=== PATIENT | male | born 1950 | race Caucasian/White ===

== ENCOUNTER 2016-04-29 15:52 | Observation (INO) ==
[2016-04-29] MEDS ORDERED: Nitroglycerin 0.4 MG TAB.SUBL SL ONE (15:55)
--- NOTE | 2016-04-29 15:58 | Emergency Department Note ---
Disposition Clinical Impression: Chest pain, Weakness Disposition: Admitted As Inpatient Condition: Good General Adult HPI - General Chief complaint: ED Chest Pain Stated complaint: Chest Pain Time Seen by Provider: 04/29/16 15:56 Nursing Notes Reviewed: Yes Vital Signs Reviewed: Yes - Related Data Home Medications Medication Instructions Recorded Confirmed Aspirin 81 mg PO DAILY 04/29/16 04/29/16 Brimonidine 0.2% [Alphagan] 1 drop RIGHT EYE TID 04/29/16 04/29/16 Clopidogrel [Plavix] 75 mg PO DAILY 04/29/16 04/29/16 Dorzolamide [Trusopt] 1 drop RIGHT EYE TID 04/29/16 04/29/16 LORazepam [Lorazepam] 2 mg PO TID PRN 04/29/16 04/29/16 Lansoprazole [Prevacid] 30 mg PO QAM 04/29/16 04/29/16 Latanoprost [Xalatan] 1 drop RIGHT EYE HS 04/29/16 04/29/16 Levothyroxine [Synthroid] 75 mcg PO QAM 04/29/16 04/29/16 Lovastatin 40 mg PO HS 04/29/16 04/29/16 Metoprolol [Lopressor] 12.5 mg PO BID 04/29/16 04/29/16 Nefazodone HCl 50 mg PO HS 04/29/16 04/29/16 Oxybutynin Chloride [Ditropan Xl] 10 mg PO DAILY 04/29/16 04/29/16 Allergies Allergy/AdvReac Type Severity Reaction Status Date / Time acetaminophen Allergy See Verified 04/29/16 15:55 [From Darvocet-N] Comments peanut Allergy See Verified 04/29/16 15:55 Comments Penicillins Allergy See Verified 04/29/16 15:55 Comments propoxyphene Allergy See Verified 04/29/16 15:55 [From Darvocet-N] Comments Sulfa (Sulfonamide Allergy See Verified 04/29/16 15:55 Antibiotics) Comments Course Vital Signs Temperature 98.0 F 04/29/16 15:56 Pulse Rate 83 04/29/16 15:56 Respiratory Rate 18 04/29/16 15:56 Blood Pressure 84/66 04/29/16 15:56 O2 Sat by Pulse Oximetry 98 04/29/16 15:56 Temperature 97.7 F 04/29/16 21:47 Pulse Rate 55 04/29/16 21:47 Respiratory Rate 18 04/29/16 21:47 Blood Pressure 123/60 04/29/16 21:47 O2 Sat by Pulse Oximetry 98 04/29/16 21:47 Oxygen Delivery Oxygen Delivery Nasal Cannula Medical Decision Making - MDM Narrative Medical decision making narrative: I examined this patient and my medical decision-making was reviewed with the ATHLETIC TURF WORKER/PA/Advanced Practice Nurse/Resident Physician. I agree with the documented findings, disposition and treatment plan as described except to the extent set forth below. Patient presents with EMS, saw this patient with Dr. Burden and myself. I agree with his evaluation and management plan, supervised the care of the patient's stay. Patient was at the applications support analyst today developed chest pain. He took aspirin. Medics evaluated him get an EKG which showed multiple PVCs. No ST segment elevation here today. I will do a workup on him given some nitroglycerin to make the chest pain go away then reassess. He most likely will need admission. Waiting on family to come also to get more history from them. Chest X-Ray 04/29/16 15:55 IMPRESSION: No acute cardiopulmonary process. D/ / 04/29/2016 16:34:51 Arsen Beltran MD / Opal Casillas Interpreting Provider: Arsen Beltran MD Chest X-Ray 04/29/16 15:55 IMPRESSION: No acute cardiopulmonary process. D/ / 04/29/2016 16:34:51 Arsen Beltran MD / Opal Casillas Interpreting Provider: Arsen Beltran MD Abdomen/Pelvis CT 04/29/16 17:52 IMPRESSION: 1. No acute abnormality in the abdomen or pelvis. 2. Mild tree-in-bud opacities in the right lung base compatible with an infectious or inflammatory process. 3. Tiny bilateral nonobstructing intrarenal calculi. D/ / Danny Villela MD / Danny Villela MD Interpreting Provider: Danny Villela MD - Lab Data Result diagrams: 04/29/16 16:18 04/29/16 16:18 Lab Results 04/29/16 04/29/16 04/29/16 Range/Units 16:18 16:18 16:18 WBC 8.8 (4.3-11.1) K/mcL RBC 4.73 (4.19-5.50) M/mcL Hgb 15.8 (12.9-16.9) g/dL Hct 44.7 (37.5-50.1) % MCV 94.5 (83.0-100.0) fL MCH 33.4 H (28.0-33.3) pg MCHC 35.3 (31.6-35.5) g/dL RDW 12.4 (11.5-14.5) % Plt Count 175 (140-400) K/mcL MPV 12.3 (9.4-12.4) fL Immature Gran % 0.2 (0-4) % Seg Neutrophils % 64.2 % Lymphocytes % 28.3 % Monocytes % 5.9 % Eosinophils % 0.9 % Basophils % 0.5 % Neutrophils # 5.6 (1.6-8.9) K/mcL Lymphocytes # 2.5 (0.6-4.6) K/mcL Monocytes # 0.5 (0.0-1.3) K/mcL Eosinophils # 0.1 (0.0-0.6) K/mcL Basophils # 0.0 (0.0-0.2) K/mcL ESR (0-10) mm/hr PT 12.4 H (9.4-12.1) Seconds INR 1.1 APTT 30.3 (26.0-36.0) Seconds Sodium 139 (136-145) mEq/L Potassium 3.6 (3.5-4.5) mEq/L Chloride 100 (98-109) mEq/L Carbon Dioxide 29 (19-29) mEq/L BUN 11 (8-26) mg/dL Creatinine 1.00 (0.72-1.25) mg/dL Est GFR ( Amer) > 60 (> 60) Est GFR (Non-Af Amer) > 60 (> 60) BUN/Creatinine Ratio 11 (6-26) Glucose 91 (70-99) mg/dL Calculated Osmolality 287 (280-300) Calcium 10.0 (8.6-10.8) mg/dL Troponin I (0-0.03) ng/mL TSH (0.350-4.840) mcIU/mL Urine Color (Yellow) Urine Clarity (Clear) Urine pH (5.0-8.0) pH Units Ur Specific [place] (1.010-1.025) Urine Protein (Neg-Trace) mg/dL Urine Glucose (UA) (Normal) mg/dL Urine Ketones (Negative) mg/dL Urine Blood (Negative) Urine Nitrite (Negative) Urine Bilirubin (Negative) Urine Urobilinogen (Normal) mg/dL Ur Leukocyte Esterase (Negative) Urine Microscopic RBC (0-3) per hpf Urine Microscopic WBC (0-3) per hpf Ur Squamous Epith Cells (None-Few) per lpf Urine Bacteria (None-Few) per hpf Hyaline Casts (None-Few) per lpf Ur Culture Indicated? (NO) 04/29/16 04/29/16 04/29/16 Range/Units 16:18 16:18 16:18 WBC (4.3-11.1) K/mcL RBC (4.19-5.50) M/mcL Hgb (12.9-16.9) g/dL Hct (37.5-50.1) % MCV (83.0-100.0) fL MCH (28.0-33.3) pg MCHC (31.6-35.5) g/dL RDW (11.5-14.5) % Plt Count (140-400) K/mcL MPV (9.4-12.4) fL Immature Gran % (0-4) % Seg Neutrophils % % Lymphocytes % % Monocytes % % Eosinophils % % Basophils % % Neutrophils # (1.6-8.9) K/mcL Lymphocytes # (0.6-4.6) K/mcL Monocytes # (0.0-1.3) K/mcL Eosinophils # (0.0-0.6) K/mcL Basophils # (0.0-0.2) K/mcL ESR 26 H (0-10) mm/hr PT (9.4-12.1) Seconds INR APTT (26.0-36.0) Seconds Sodium (136-145) mEq/L Potassium (3.5-4.5) mEq/L Chloride (98-109) mEq/L Carbon Dioxide (19-29) mEq/L BUN (8-26) mg/dL Creatinine (0.72-1.25) mg/dL Est GFR ( Amer) (> 60) Est GFR (Non-Af Amer) (> 60) BUN/Creatinine Ratio (6-26) Glucose (70-99) mg/dL Calculated Osmolality (280-300) Calcium (8.6-10.8) mg/dL Troponin I 0.00 (0-0.03) ng/mL TSH 1.600 (0.350-4.840) mcIU/mL Urine Color (Yellow) Urine Clarity (Clear) Urine pH (5.0-8.0) pH Units Ur Specific [place] (1.010-1.025) Urine Protein (Neg-Trace) mg/dL Urine Glucose (UA) (Normal) mg/dL Urine Ketones (Negative) mg/dL Urine Blood (Negative) Urine Nitrite (Negative) Urine Bilirubin (Negative) Urine Urobilinogen (Normal) mg/dL Ur Leukocyte Esterase (Negative) Urine Microscopic RBC (0-3) per hpf Urine Microscopic WBC (0-3) per hpf Ur Squamous Epith Cells (None-Few) per lpf Urine Bacteria (None-Few) per hpf Hyaline Casts (None-Few) per lpf Ur Culture Indicated? (NO) 04/29/16 Range/Units 17:50 WBC (4.3-11.1) K/mcL RBC (4.19-5.50) M/mcL Hgb (12.9-16.9) g/dL Hct (37.5-50.1) % MCV (83.0-100.0) fL MCH (28.0-33.3) pg MCHC (31.6-35.5) g/dL RDW (11.5-14.5) % Plt Count (140-400) K/mcL MPV (9.4-12.4) fL Immature Gran % (0-4) % Seg Neutrophils % % Lymphocytes % % Monocytes % % Eosinophils % % Basophils % % Neutrophils # (1.6-8.9) K/mcL Lymphocytes # (0.6-4.6) K/mcL Monocytes # (0.0-1.3) K/mcL Eosinophils # (0.0-0.6) K/mcL Basophils # (0.0-0.2) K/mcL ESR (0-10) mm/hr PT (9.4-12.1) Seconds INR APTT (26.0-36.0) Seconds Sodium (136-145) mEq/L Potassium (3.5-4.5) mEq/L Chloride (98-109) mEq/L Carbon Dioxide (19-29) mEq/L BUN (8-26) mg/dL Creatinine (0.72-1.25) mg/dL Est GFR ( Amer) (> 60) Est GFR (Non-Af Amer) (> 60) BUN/Creatinine Ratio (6-26) Glucose (70-99) mg/dL Calculated Osmolality (280-300) Calcium (8.6-10.8) mg/dL Troponin I (0-0.03) ng/mL TSH (0.350-4.840) mcIU/mL Urine Color Yellow (Yellow) Urine Clarity Clear (Clear) Urine pH 6.0 (5.0-8.0) pH Units Ur Specific [place] 1.010 (1.010-1.025) Urine Protein Negative (Neg-Trace) mg/dL Urine Glucose (UA) Normal (Normal) mg/dL Urine Ketones Negative (Negative) mg/dL Urine Blood Trace H (Negative) Urine Nitrite Negative (Negative) Urine Bilirubin Negative (Negative) Urine Urobilinogen Normal (Normal) mg/dL Ur Leukocyte Esterase Negative (Negative) Urine Microscopic RBC 0-3 (0-3) per hpf Urine Microscopic WBC 0-3 (0-3) per hpf Ur Squamous Epith Cells None Seen (None-Few) per lpf Urine Bacteria None Seen (None-Few) per hpf Hyaline Casts None Seen (None-Few) per lpf Ur Culture Indicated? NO (NO)
--- NOTE | 2016-04-29 16:04 | Emergency Department Note ---
Disposition Clinical Impression: Weakness Chest pain Qualifiers: Chest pain type: unspecified Qualified Code(s): R07.9 - Chest pain, unspecified Disposition: Admitted As Inpatient Forms: ED Satisfaction Letter Chest Pain HPI - General Chief Complaint: ED Chest Pain Stated Complaint: Chest Pain Source: patient, family, EMS Mode of arrival: ambulatory Limitations: no limitations Vital Signs Reviewed: Yes Nursing Notes Reviewed: Yes - History of Present Illness HPI Narrative: Patient here for evaluation of chest pain. Patient with significant past medical history including CABG and multiple stents. Most recent stent placed in December. Patient has been experiencing intermittent chest pain over the last week that has been better with rest. Patient was at an outpatient ophthalmology appointment when he began having chest pain and dyspnea. Patient describes 9 out of 10 chest pressure and generalized weakness. Patient has a pacemaker/defibrillator was placed in December. Patient sees neurology here for new onset right-sided tremors occurring approximately 5-6 weeks ago. - Related Data Home Medications Medication Instructions Recorded Confirmed Aspirin 81 mg PO DAILY 04/29/16 04/29/16 Brimonidine 0.2% [Alphagan] 1 drop RIGHT EYE TID 04/29/16 04/29/16 Clopidogrel [Plavix] 75 mg PO DAILY 04/29/16 04/29/16 Dorzolamide [Trusopt] 1 drop RIGHT EYE TID 04/29/16 04/29/16 LORazepam [Lorazepam] 2 mg PO TID PRN 04/29/16 04/29/16 Lansoprazole [Prevacid] 30 mg PO QAM 04/29/16 04/29/16 Latanoprost [Xalatan] 1 drop RIGHT EYE HS 04/29/16 04/29/16 Levothyroxine [Synthroid] 75 mcg PO QAM 04/29/16 04/29/16 Lovastatin 40 mg PO HS 04/29/16 04/29/16 Metoprolol [Lopressor] 12.5 mg PO BID 04/29/16 04/29/16 Nefazodone HCl 100 mg PO HS 04/29/16 04/29/16 Oxybutynin Chloride [Ditropan Xl] 10 mg PO DAILY 04/29/16 04/29/16 Allergies Allergy/AdvReac Type Severity Reaction Status Date / Time acetaminophen Allergy See Verified 04/29/16 15:55 [From Darvocet-N] Comments peanut Allergy See Verified 04/29/16 15:55 Comments Penicillins Allergy See Verified 04/29/16 15:55 Comments propoxyphene Allergy See Verified 04/29/16 15:55 [From Dargust-N] Comments Sulfa (Sulfonamide Allergy See Verified 04/29/16 15:55 Antibiotics) Comments Constitutional: Reports: weakness Cardiovascular: Reports: chest pain, dyspnea on exertion Respiratory: Reports: dyspnea Gastrointestinal: Reports: abdominal pain, nausea Genitourinary: Denies: urgency, dysuria Musculoskeletal: Denies: back pain Integumentary: Denies: rash Endocrine: Reports: fatigue Physical Exam Patient with right upper extremity tremor - General Limitations: no limitations - Head Head exam: atraumatic, normocephalic - Eye Eye exam: Present: normal appearance, PERRL - ENT ENT exam: normal exam, normal oropharynx - Neck Neck exam: Present: normal inspection - Chest Chest inspection: Present: normal inspection, symmetric chest wall rise. Absent : tenderness - Respiratory Respiratory exam: Present: normal lung sounds bilaterally. Absent: wheezes - Cardiovascular Cardiovascular exam: Present: regular rate, normal rhythm - Abdominal Exam Abdominal exam: Present: soft, tenderness Abdominal tenderness: Present: LLQ - Extremities Exam Extremities exam: Present: normal inspection. Absent: tenderness, pedal edema - Back Exam Back exam: Present: normal inspection - Neurological Exam Neurological exam: Present: CN II-XII intact, other (Patient is awake and alert but gives slightly different variations of story upon repeated questioning.). Absent: motor sensory deficit - Skin Skin exam: Present: warm, dry Course - Reevaluation(s) Reevaluation #1: Patient given 2 sublingual nitroglycerin and does not currently complain of any chest pressure. Patient has headache from the nitroglycerin. Patient appears much more comfortable at this point. Continued complaint of significant weakness that is generalized. Patient will be brought in for further evaluation by the hospital team. Chest Pain - Medical Records Medical records reviewed: Yes I reviewed the patient's medical records. - Lab Data Lab results reviewed: Yes I reviewed the patient's lab results. - Radiology Data Radiology results reviewed: Yes I reviewed the patient's radiology results. - EKG Data EKG attestation: Yes I reviewed and interpreted this EKG. EKG results narrative: Sinus Rhythm with PVC rate 79; 1mm elevation in V2 and V3. No other depressions or twave changes. No previous EKG.
[2016-04-29 16:44] LABS: Basophils % 0.5 %; Eosinophils # 0.1 K/mcL (0.0-0.6); Eosinophils % 0.9 %; Hematocrit 44.7 % (37.5-50.1); Hemoglobin 15.8 g/dL (12.9-16.9); Immature Granulocytes % 0.2 % (0-4); Lymphocytes # 2.5 K/mcL (0.6-4.6); Lymphocytes % 28.3 %; Mean Corpuscular HGB Conc 35.3 g/dL (31.6-35.5); Mean Corpuscular Hemoglobin 33.4 pg (28.0-33.3); Mean Corpuscular Volume 94.5 fL (83.0-100.0); Mean Platelet Volume 12.3 fL (9.4-12.4); Monocytes # 0.5 K/mcL (0.0-1.3); Monocytes % 5.9 %; Neutrophils # 5.6 K/mcL (1.6-8.9); Platelet Count 175 K/mcL (140-400); Red Blood Count 4.73 M/mcL (4.19-5.50); Red Cell Distribution Width 12.4 % (11.5-14.5); Segmented Neutrophils % 64.2 %
[2016-04-29 16:45] LABS: INR 1.1; Prothrombin Time 12.4 Seconds (9.4-12.1)
[2016-04-29 16:48] LABS: Activated Partial Thrombo Time 30.3 Seconds (26.0-36.0)
[2016-04-29 16:54] LABS: BUN/Creatinine Ratio 11 (6-26); Blood Urea Nitrogen 11 mg/dL (8-26); Carbon Dioxide 29 mEq/L (19-29); Chloride 100 mEq/L (98-109); Glucose 91 mg/dL (70-99); Osmolality,Calculated 287 (280-300); Potassium 3.6 mEq/L (3.5-4.5); Sodium 139 mEq/L (136-145); eGFR For African Americans > 60 (> 60); eGFR For Non-African Americans > 60 (> 60)
[2016-04-29 18:28] LABS: Bilirubin,Urine Negative (Negative); Blood,Urine Trace (Negative); Clarity,Urine Clear (Clear); Color,Urine Yellow (Yellow); Glucose,Urine (UA) Normal (Normal); Ketones,Urine Negative (Negative); Leukocyte Esterase,Urine Negative (Negative); Nitrite,Urine Negative (Negative); Protein,Urine Negative (Neg-Trace); Urobilinogen,Urine Normal (Normal)
[2016-04-29 18:31] LABS: Bacteria,Urine None Seen per hpf (None-Few); Hyaline Casts,Urine None Seen per lpf (None-Few); RBC,Urine 0-3 per hpf (0-3); Squamous Epithelial Cell,Urine None Seen per lpf (None-Few); WBC,Urine 0-3 per hpf (0-3)
[2016-04-29] MEDS ORDERED: Naloxone 0.4 MG/ML INJ IVP PRN (22:33)
[2016-04-29] MEDS ORDERED: Ondansetron 4 MG/2 ML VIAL IVP PRN (22:33)
[2016-04-29] MEDS ORDERED: Nitroglycerin 0.4 MG TAB.SUBL SL PRN (22:38)
--- NOTE | 2016-04-29 23:12 | Internal Med History&Physical ---
<Louisa Chamberlain - Last Filed: 04/29/16 23:37> Date of Encounter: 04/29/16 Time of Encounter: 23:00 Assessment and Plan (1) Chest pain Current visit: Yes Status: Acute 1 patient has been experiencing intermittent chest pain relieved with rest as well as weakness past week. He did have chest pain today which was relieved with nitroglycerin. She has extensive cardiac history with recent stent placed in December as well as hypertension and current smoker. First cardiac enzyme was negative we will continue to cycle cardiac troponins 2 . Cardiac monitoring 3 the patient nothing by mouth after midnight- we will consult cardiology, patient requesting to be seen by his test facility engineer Dr. Powell, [facility], he will be notified in the a.m. patient's admission and appreciate his recommendations 4 nitroglycerin and morphine as needed oxygen as needed and maintain SPO2 greater than 92% 5 continue with aspirin and Plavix statin and beta sha Qualifiers: Chest pain type: unspecified Qualified Code(s): R07.9 - Chest pain, unspecified (2) HTN (hypertension) Current visit: Yes Status: Acute 1 we will continue with metoprolol lisinopril maintain systolic less than 140 Qualifiers: Hypertension type: essential hypertension Qualified Code(s): I10 - Essential (primary) hypertension (3) COPD (chronic obstructive pulmonary disease) Current visit: Yes Status: Acute 1 we will continue with oxygen to maintain SPO2 greater 92% 2 bronchodilators Qualifiers: COPD type: emphysema Emphysema type: unspecified Qualified Code(s): J43.9 - Emphysema, unspecified (4) Tobacco abuse Current visit: Yes Status: Acute 1 patient continues to smoke 2 packs a day encouraged patient to stop smoking offer nicotine patch which he declined at this time (5) DVT prophylaxis Current visit: Yes Status: Acute 1 DEO arriola (6) Essential tremor Current visit: Yes Status: Acute 1 she has been experiencing tremors approximately 5-6 weeks and seen by neurology and will follow up with Dr. Viveros Internal Medicine - H&P: HPI Chief complaint: CP Admitted From: Emergency Dept Plans for Post Hospital Care: Home History of present illness: Mr. Polk is a 65 year old male COPD oxygen dependent [place] with CABG and multiple stents most recent stent placed in December 2015 pacemaker / AICD CHF GERD tobacco abuse. She has been experiencing intermittent chest pressure that is relieved with rest off and on approximately 1 week as well as increasing weakness for past 3 days. Today he had an appointment with his vice president sales while he was in the physician's office, the patient became very weak and experiencing sternal nonradiating chest pressure which she describes as tightness because of someone was sitting on his chest he was short of breath denies any nausea diaphoresis and was lightheaded. He was transported to the ER per EMS for further workup and evaluation. Upon arrival to the ER the patient was given 2 nitroglycerin which did relieve his chest pressure. First set of cardiac troponins were negative chest x-ray with no acute process. Rest of lab work was unremarkable. He did experience some abdominal pain while in the ER CT of abdomen was obtained which was negative. He was admitted for further workup and evaluation. At present time patient denies any chest pain or shortness of breath. His test facility engineer is Dr. Powell at [facility] who performed his last stent in December. He has been experiencing a tremor for approximately 5-6 weeks and has been examined by neurology Dr. Viveros. At present time he is hemodynamically stable. I reviewed this case with Dr. Gunderson who agrees with plan Past Med Surg Social Fam HX - Past Medical History Medical history: CHF, coronary artery disease, GERD, hyperlipidemia, hypertension, myocardial infarction, thyroid disease Psychiatric history: anxiety - Past Surgical History Surgical History: angioplasty/stent, coronary bypass (CABG), herniorrhaphy, pacemaker/AICD - Social History Smoking Status: Current every day smoker Packs per day: 2 Smokeless Tobacco Status: No Alcohol use: none Drug use: none - Family History Sister Hx Family Cardiac Disorders: Yes (MYOCARDIAL INFARCTION.) Internal Medicine - H&P: Meds Aspirin 81 mg PO DAILY 04/29/16 [History] Brimonidine 0.2% [Alphagan] 1 drop RIGHT EYE TID 04/29/16 [History] Clopidogrel [Plavix] 75 mg PO DAILY 04/29/16 [History] Dorzolamide [Trusopt] 1 drop RIGHT EYE TID 04/29/16 [History] LORazepam [Lorazepam] 2 mg PO TID PRN 04/29/16 [History] Lansoprazole [Prevacid] 30 mg PO QAM 04/29/16 [History] Latanoprost [Xalatan] 1 drop RIGHT EYE HS 04/29/16 [History] Levothyroxine [Synthroid] 75 mcg PO QAM 04/29/16 [History] Lovastatin 40 mg PO HS 04/29/16 [History] Metoprolol [Lopressor] 12.5 mg PO BID 04/29/16 [History] Nefazodone HCl 50 mg PO HS 04/29/16 [History] Oxybutynin Chloride [Ditropan Xl] 10 mg PO DAILY 04/29/16 [History] Allergies acetaminophen [From Darvocet-N] Allergy (Verified 04/29/16 15:55) See Comments peanut Allergy (Verified 04/29/16 15:55) See Comments Penicillins Allergy (Verified 04/29/16 15:55) See Comments propoxyphene [From Darvocet-N] Allergy (Verified 04/29/16 15:55) See Comments Sulfa (Sulfonamide Antibiotics) Allergy (Verified 04/29/16 15:55) See Comments All Systems PM: A 10-system review of systems was performed and is negative for pertinent findings except as documented above in the HPI. - Constitutional Constitutional: weakness - Cardiovascular Cardiovascular ROS IM: chest pain - Respiratory Respiratory: no cough, no dyspnea, no wheezing, no excessive phlegm production - Gastrointestinal Gastrointestinal: no abdominal pain, no diarrhea, no hematemesis, no hematochezia, no melena, no nausea, no vomiting - Musculoskeletal Musculoskeletal ROS IM: no numbness, no tingling - Neurological Neurological ROS: tremor(s) - Constitutional Vitals: Temp Pulse Resp BP Pulse Ox 97.7 F 55 18 123/60 98 04/29/16 21:47 04/29/16 21:47 04/29/16 21:47 04/29/16 21:47 04/29/16 21:47 General appearance: Present: A&O X 3, answers questions appropriately - Head Head exam: Present: atraumatic, normocephalic - Respiratory Respiratory exam: Present: CTAB. Absent: accessory muscle use, rales, rhonchi, wheezes - Cardiovascular Cardiovascular exam: Present: RRR, +S1, +S2. Absent: diastolic murmur, gallop, rubs, systolic murmur - GI/Abdominal GI/Abdominal exam: Present: normal bowel sounds, soft, no peritoneal signs. Absent: distended, tenderness - Extremities Exam Extremities exam: Present: warm, radial pulses palpable and symetrical. Absent : calf tenderness, cyanotic, pedal edema - Neurological Exam Neurological exam: Present: CN II-XII intact, oriented X3, no focal deficits. Absent: pronater drift, facial droop, speech deficit - Skin Skin exam: Present: dry, intact Internal Med - H&P Results - Labs CBC & Chem 7: 04/29/16 16:18 04/29/16 16:18 - EKG Data EKG shows normal: sinus rhythm Rate: bradycardia - Diagnostic Studies Chest x-ray Additional comments: Pertinent radiology read no acute cardiopulmonary process CT scan - abdomen Additional comments: Radiology read no acute and the abdomen or pelvis. Mild tree-in-bud the patient is in right lung base compatible with an infectious or inflammatory process. Type bilateral intrarenal calculi. <Kristopher Gunderson - Last Filed: 04/30/16 08:03> Date of Encounter: 04/29/16 Internal Medicine - H&P: HPI History of present illness: Mr. Polk is a 65 year old male All Systems PM: A 10-system review of systems was performed and is negative for pertinent findings except as documented above in the HPI. - Constitutional Vitals: Temp Pulse Resp BP Pulse Ox 97.7 F 57 18 133/68 97 04/30/16 07:33 04/30/16 07:33 04/30/16 07:33 04/30/16 07:33 04/30/16 07:33 Internal Med - H&P Results - Labs CBC & Chem 7: 04/30/16 00:31 04/30/16 00:31 Labs: Short CBC 04/30/16 Range/Units 00:31 WBC 7.1 (4.3-11.1) K/mcL Hgb 13.7 D (12.9-16.9) g/dL Hct 39.7 (37.5-50.1) % Plt Count 138 L (140-400) K/mcL Neutrophils # 3.9 (1.6-8.9) K/mcL BMP 04/30/16 00:31 Sodium 139 Potassium 3.3 L Chloride 103 Carbon Dioxide 29 BUN 10 Creatinine 0.91 Glucose 110 H Calcium 9.2 - Attending Attestation I examined this patient and my medical decision-making was reviewed with the CLAY MILLER/PA/Advanced Practice Nurse/Resident Physician. I agree with the documented findings, disposition and treatment plan as described except to the extent set forth below. I have personally examined and evaluated the patient and discussed details with the ADMINISTRATIVE ASSISTANT COORDINATOR. 65 Y/M with h/o CAD - s/p CABG and stent placement (12/2015) - presented with chest pain. EKG no acute changes. Troponins negative sofar. Pt does not want to see test facility engineer here. His test facility engineer is Dr Graf at [facility]. If his troponins remain negative, will possibly discuss with his test facility engineer regarding further management. I will signout to the day team.
[2016-04-29] MEDS: NEFAZODONE HCL 100 MG PO SCH (23:30)
[2016-04-29] MEDS: *HR* LORazepam 1 MG TABLET PO PRN (23:30)
[2016-04-29] MEDS ORDERED: Albuterol 2.5 MG/3 ML NEBULIZER IH PRN (23:38)
[2016-04-30 00:48] LABS: Basophils % 0.3 %; Eosinophils # 0.2 K/mcL (0.0-0.6); Eosinophils % 2.3 %; Hematocrit 39.7 % (37.5-50.1); Immature Granulocytes % 0.3 % (0-4); Lymphocytes # 2.4 K/mcL (0.6-4.6); Lymphocytes % 34.4 %; Mean Corpuscular HGB Conc 34.5 g/dL (31.6-35.5); Mean Corpuscular Hemoglobin 32.5 pg (28.0-33.3); Mean Corpuscular Volume 94.3 fL (83.0-100.0); Mean Platelet Volume 12.5 fL (9.4-12.4); Monocytes # 0.5 K/mcL (0.0-1.3); Monocytes % 7.1 %; Neutrophils # 3.9 K/mcL (1.6-8.9); Platelet Count 138 K/mcL (140-400); Red Blood Count 4.21 M/mcL (4.19-5.50); Red Cell Distribution Width 12.4 % (11.5-14.5); Segmented Neutrophils % 55.6 %
[2016-04-30 00:53] LABS: BUN/Creatinine Ratio 11 (6-26); Blood Urea Nitrogen 10 mg/dL (8-26); Calcium 9.2 mg/dL (8.6-10.8); Carbon Dioxide 29 mEq/L (19-29); Chloride 103 mEq/L (98-109); Chol/HDL Ratio 4.5 (0-4.9); Cholesterol 108 mg/dL (< 200); Glucose 110 mg/dL (70-99); HDL Cholesterol 24 mg/dL (40-59); LDL Cholesterol,Calculated 65 mg/dL (0-99); Magnesium 1.9 mg/dL (1.6-2.6); Osmolality,Calculated 288 (280-300); Potassium 3.3 mEq/L (3.5-4.5); Sodium 139 mEq/L (136-145); Triglycerides 97 mg/dL (< 150); eGFR For African Americans > 60 (> 60); eGFR For Non-African Americans > 60 (> 60)
[2016-04-30 00:57] LABS: Hemoglobin 13.7 g/dL (12.9-16.9)
[2016-04-30] MEDS ORDERED: Potassium Chloride Elixir 20 MEQ/15 ML UDC PO ONE (08:11)
[2016-04-30] MEDS: Aspirin 81 MG TAB.CHEW PO SCH (08:15)
[2016-04-30] MEDS: *HR* LORazepam 1 MG TABLET PO PRN ×3 (08:15→21:46)
[2016-04-30] MEDS: Nicotine 21 MG PATCH.TD24 TD SCH (08:16)
[2016-04-30] MEDS: Dorzolamide OPTH 10 ML BOTTLE RIGHT EYE SCH ×3 (08:17→21:37)
--- NOTE | 2016-04-30 12:12 | ECHO - Doppler Report ---
Echocardiogram Name: Roberto Polk Date of Study: 04/30/2016 Date: 1950 Ht: 71.0 in Medical Record#: [id number] Age: 65 Wt: 181.0 lb Gender: Male BSA: 2.02 Order #: [id number] Location: [facility] Room #: 3B44 Reading Physician: Bon Cavazos MD, [facility] Supervisor [employer] Education: Judi Overton RVT Ordering Physician: Louisa Chamberlain CNP Primary Physician: Jie Kinsey MD Indications: Chest pain Impressions: Mildly dilated left ventricle. Moderate left ventricular systolic dysfunction, LVEF 35-40%. There are regional wall motion abnormalities, see diagram below. Mild left ventricular diastolic dysfunction. Normal right ventricular size and function. A device lead was visualized in the right atrium and right ventricle. No significant valvular dysfunction. No evidence of pulmonary hypertension. Left Ventricular Wall Motion: Rest Echo Findings The mid inferior, basal inferior, mid inferior septal, basal inferior septal, mid anterior septal, mid inferior lateral, basal anterior septal and basal inferior lateral martínez were hypokinetic. All other wall segments showed normal motion. Findings: Study Quality * Technically adequate exam. ECG Findings * Normal sinus rhythm. Left Ventricle * Mildly dilated left ventricle. * Moderate left ventricular systolic dysfunction, LVEF 35-40%. There are regional wall motion abnormalities, see diagram below. * Normal LV wall thickness. * Mild left ventricular diastolic dysfunction. Right Ventricle * Normal right ventricular size and function. Device lead * A device lead was visualized in the right atrium and right ventricle. Left Atrium * Normal left atrial size. Right Atrium * Normal right atrial size. Aorta * Normally sized aortic root. Pericardium * There is no pericardial effusion present. IVC * Normal IVC dimensions and inspiratory collapse. Aortic Valve * Trileaflet aortic valve. * No aortic stenosis. * No aortic regurgitation. Mitral Valve * Mildly thickened mitral valve leaflets. * No mitral stenosis. * Trace mitral regurgitation. Tricuspid Valve * Normal tricuspid valve structure. * No tricuspid stenosis. * Trace tricuspid regurgitation. * No evidence of pulmonary hypertension. Pulmonic Valve * Pulmonic valve not well visualized. * No pulmonic stenosis. * No pulmonic regurgitation. History Hypertension Hypercholesteremia History of Smoking Years 50 Packs 2 Family History of CAD History of CAD/PTCA Coronary Artery Bypass Graft Congestive Heart Failure Pacer/ICD Implant Measurements: BP: 133/ 68 2D Normal Values RVIDd: 3.60 cm IVSd: 1.00 cm 0.6 - 1.0 cm LVIDd: 6.10 cm 3.7 - 5.6 cm LVPWd: 1.00 cm 0.6 - 1.1 cm LVIDs: 5.10 cm 1.5 - 3.6 cm AO: 3.30 cm < 4.0 cm LA volume: 46 Mitral Valve Peak E:.54 m/sec Peak A:.84 m/sec E/A Ratio:0.6 Tricuspid Valve TV Regurg Peak Grad: 13.00mmHg TV Regurg Peak Aiden: 1.78m/sec Updated by Bon Cavazos MD, [facility] on 04/30/2016 12:07:13 PM electronically signed on 04/30/2016 12:07:54 PM with status of Final Wall Motion Lieberman: 1=Normal, 2=Hypokinesis, 3=Akinesis, 4=Dyskinesis, 5=Aneurysmal, 6=Hyperkinetic, X=Not Visualized (Blank)=Missing
--- NOTE | 2016-04-30 15:43 | Internal Med Progress Note ---
Date of Encounter: 04/30/16 Time of Encounter: 10:00 - Assessment and plan (1) Chest pain Current Visit: Yes Status: Acute Assessment and plan: Patient has a history of CAD. Had a catheterization and stenting in December 2015. His 3 sets of troponin negative and chest pain-free now. We will continue closely monitor patient. Continue aspirin and Plavix and beta sha , and statin. NTG when necessary. Qualifiers: Chest pain type: unspecified Qualified Code(s): R07.9 - Chest pain, unspecified (2) COPD (chronic obstructive pulmonary disease) Current Visit: Yes Status: Acute Assessment and plan: No signs of exacerbation. We will continue home medication Qualifiers: COPD type: emphysema Emphysema type: unspecified Qualified Code(s): J43.9 - Emphysema, unspecified (3) Essential tremor Current Visit: Yes Status: Acute Assessment and plan: No symptoms now, on beta sha (4) HTN (hypertension) Current Visit: Yes Status: Acute Assessment and plan: Continue home medication. BP is stable Qualifiers: Hypertension type: essential hypertension Qualified Code(s): I10 - Essential (primary) hypertension (5) Tobacco abuse Current Visit: Yes Status: Acute Assessment and plan: Smoking cessation education. (6) DVT prophylaxis Current Visit: Yes Status: Acute Assessment and plan: Lovenox subcutaneously - Subjective Interval history: Patient is a 65-year-old male admitted as chest pain. His past medical history is significant for CHF on PPM/AICD, CAD, COPD, hypertension, hyperlipidemia. Patient was seen and examined. He has a pain when I see him. Awake alert, oriented 3. In no acute distress. Three sets of troponin negative. EKG unremarkable. Echo shows EF 35-40%. Patient just had stent and pacemaker plced in December 2015. He would like to see his trim die maker Dr Powell in [facility] after discharge. Patient had an appointment with neurologist Dr Viveros as outpatient tomorrow, his son called Dr. Viveros and Dr. Viveros will come to see him. We will closely continue monitoring patient. Continue current treatment. - Constitutional Vitals: Temp Pulse Resp BP Pulse Ox 98.0 F 73 18 117/72 97 04/30/16 15:21 04/30/16 15:21 04/30/16 15:21 04/30/16 15:21 04/30/16 15:21 General appearance: Present: A&O X 3, answers questions appropriately - Head Head exam: Present: atraumatic, normocephalic - Eye Eye exam: Present: PERRL, conjuntiva pink, sclera anicteric Pupils: Present: PERRL - Neck Neck exam general surgery: Present: supple, trachea midline. Absent: lymphadenopathy - Respiratory Respiratory exam: Present: CTAB. Absent: accessory muscle use, rales, rhonchi, wheezes - Cardiovascular Cardiovascular exam: Present: RRR, +S1, +S2. Absent: diastolic murmur, gallop, rubs, systolic murmur - GI/Abdominal GI/Abdominal exam: Present: normal bowel sounds, soft, no peritoneal signs. Absent: distended, tenderness - Extremities Exam Extremities exam: Present: warm, radial pulses palpable and symetrical. Absent : calf tenderness, cyanotic, pedal edema - Neurological Exam Neurological exam: Present: CN II-XII intact, oriented X3, no focal deficits. Absent: pronater drift, facial droop, speech deficit - Skin Skin exam: Present: dry, intact Internal Medicine: Result - Labs CBC & Chem 7: 04/30/16 00:31 04/30/16 00:31 Labs: Short CBC 04/30/16 Range/Units 00:31 WBC 7.1 (4.3-11.1) K/mcL Hgb 13.7 D (12.9-16.9) g/dL Hct 39.7 (37.5-50.1) % Plt Count 138 L (140-400) K/mcL Neutrophils # 3.9 (1.6-8.9) K/mcL BMP 04/30/16 00:31 Sodium 139 Potassium 3.3 L Chloride 103 Carbon Dioxide 29 BUN 10 Creatinine 0.91 Glucose 110 H Calcium 9.2 Cardiac Enzymes 04/30/16 Range/Units 06:26 Troponin I 0.01 (0-0.03) ng/mL - ABG Interpretation ABG results: PT/INR, D-dimer PT 12.4 Seconds (9.4-12.1) H 04/29/16 16:18 Consult Discharge Plan - Plan Referrals: Jie Kinsey MD [Primary Care Provider] -
--- NOTE | 2016-04-30 16:31 | Electrocardiograph Report ---
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
[2016-04-30] MEDS: *HR* Morphine 2 MG/ML SYRINGE IVP PRN ×2 (16:49→21:47)
[2016-04-30] MEDS ORDERED: Latanoprost 2.5 ML BOTTLE RIGHT EYE SCH (21:00)
[2016-04-30] MEDS: NEFAZODONE HCL 100 MG PO SCH (21:56)
[2016-05-01] MEDS: *HR* Morphine 2 MG/ML SYRINGE IVP PRN (06:21)
[2016-05-01] MEDS ORDERED: *HR* Enoxaparin 40 MG/0.4 ML SYRINGE SQ SCH (07:00)
[2016-05-01] MEDS: *HR* LORazepam 1 MG TABLET PO PRN (07:34)
[2016-05-01] MEDS: Aspirin 81 MG TAB.CHEW PO SCH (07:34)
[2016-05-01] MEDS: Nicotine 21 MG PATCH.TD24 TD SCH (07:34)
[2016-05-01] MEDS: Dorzolamide OPTH 10 ML BOTTLE RIGHT EYE SCH (07:36)
--- NOTE | 2016-05-01 09:59 | Electrocardiograph Report ---
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
--- NOTE | 2016-05-01 10:41 | Discharge Summary ---
Date of Encounter: 05/01/16 Time of Encounter: 09:00 - Discharge Diagnosis (1) Chest pain Priority: Primary Status: Acute Qualifiers: Chest pain type: unspecified Qualified Code(s): R07.9 - Chest pain, unspecified (2) COPD (chronic obstructive pulmonary disease) Priority: Secondary Status: Acute Qualifiers: COPD type: emphysema Emphysema type: unspecified Qualified Code(s): J43.9 - Emphysema, unspecified (3) Essential tremor Priority: Secondary Status: Acute (4) HTN (hypertension) Priority: Secondary Status: Acute Qualifiers: Hypertension type: essential hypertension Qualified Code(s): I10 - Essential (primary) hypertension (5) Tobacco abuse Priority: Secondary Status: Acute (6) DVT prophylaxis Priority: Secondary Status: Acute (7) CHF (congestive heart failure) Priority: Primary Status: Acute Qualifiers: Congestive heart failure type: systolic Congestive heart failure chronicity : chronic Qualified Code(s): I50.22 - Chronic systolic (congestive) heart failure - Discharge Medications Prescriptions: Nitroglycerin 0.4 mg SL Q5MIN PRN #20 tab.subl PRN Reason: Chest Pain Nicotine Patch [Nicoderm] 21 mg TD DAILY #14 patch.td24 Home Medications: Aspirin 81 mg PO DAILY 04/29/16 [History] Brimonidine 0.2% [Alphagan] 1 drop RIGHT EYE TID 04/29/16 [History] Clopidogrel [Plavix] 75 mg PO DAILY 04/29/16 [History] Dorzolamide [Trusopt] 1 drop RIGHT EYE TID 04/29/16 [History] LORazepam [Lorazepam] 2 mg PO TID PRN 04/29/16 [History] Lansoprazole [Prevacid] 30 mg PO QAM 04/29/16 [History] Latanoprost [Xalatan] 1 drop RIGHT EYE HS 04/29/16 [History] Levothyroxine [Synthroid] 75 mcg PO QAM 04/29/16 [History] Lovastatin 40 mg PO HS 04/29/16 [History] Metoprolol [Lopressor] 12.5 mg PO BID 04/29/16 [History] Nefazodone HCl 50 mg PO HS 04/29/16 [History] Oxybutynin Chloride [Ditropan Xl] 10 mg PO DAILY 04/29/16 [History] Nicotine Patch [Nicoderm] 21 mg TD DAILY #14 patch.td24 05/01/16 [Rx] Nitroglycerin 0.4 mg SL Q5MIN PRN #20 tab.subl 05/01/16 [Rx] Allergies/Adverse Reactions: Allergies acetaminophen [From Darvocet-N] Allergy (Verified 04/29/16 15:55) See Comments peanut Allergy (Verified 04/29/16 15:55) See Comments Penicillins Allergy (Verified 04/29/16 15:55) See Comments propoxyphene [From Darvocet-N] Allergy (Verified 04/29/16 15:55) See Comments Sulfa (Sulfonamide Antibiotics) Allergy (Verified 04/29/16 15:55) See Comments Procedures/tests Complete & Pending: Procedures Performed prior 72 hours Category Date Time Status ECG 12 lead ECG [ECG] Routine Y 04/29/16 18:20 Completed EKG [ECG 12 lead ECG] [ECG] AM 0600 Y 04/30/16 06:00 Ordered EV echocardiogram Routine Y 04/30/16 23:03 Completed Date of admission: 04/29/16 20:46 Primary care physician: Jie Kinsey MD Discharging clinician: Judah Nunez Anticipated date of discharge: 05/01/16 - Patient Status Disposition: Home, Self-Care Condition: Good Functional capacity at discharge: independent ambulation Overall status at discharge: patient is back to baseline - Discharge Instructions Follow Up With: Jie Kinsey MD [Primary Care Provider] - - Diet and Activity Activity: increase activity as tolerated Diet: low fat, low cholesterol, low salt diet Interval History: Mr. Polk is a 65 year old male COPD oxygen dependent NH with CABG and multiple stents most recent stent placed in December 2015 pacemaker / AICD CHF GERD tobacco abuse. She has been experiencing intermittent chest pressure that is relieved with rest off and on approximately 1 week as well as increasing weakness for past 3 days. Today he had an appointment with his reporting consultant while he was in the physician's office, the patient became very weak and experiencing sternal nonradiating chest pressure which she describes as tightness because of someone was sitting on his chest he was short of breath denies any nausea diaphoresis and was lightheaded. He was transported to the ER per EMS for further workup and evaluation. Upon arrival to the ER the patient was given 2 nitroglycerin which did relieve his chest pressure. First set of cardiac troponins were negative chest x-ray with no acute process. Rest of lab work was unremarkable. He did experience some abdominal pain while in the ER CT of abdomen was obtained which was negative. He was admitted for further workup and evaluation. At present time patient denies any chest pain or shortness of breath. His bone process operator is Dr. Powell at [facility] who performed his last stent in December. He has been experiencing a tremor for approximately 5-6 weeks and has been examined by neurology Dr. Viveros. At present time he is hemodynamically stable. Hospital course: Mr. Polk is a 65 year old male admitted for chest pain. He has history of CAD and CHF and was placed on stent and AICD in December [address] Powell in [facility]. Patient was placed on cardiac monitoring. 3 sets of troponin negative, EKG unremarkable. Echo shows LVEF 35-40%, patient is on AICD already. Patient is on aspirin, Plavix, beta sha, and statin. He is not on the CAROL inhibitor or ARB. Patient would like to follow up with his own bone process operator in [facility], will defer the long-term management to his bone process operator. I saw and examined the patient today. He is awake alert, oriented 3, verbalizes understanding what he told him. He has no further chest pain after admission. Vitals are stable. Will discharge patient home and the patient promised that he will follow-up with his bone process operator Dr. Powell as soon as possible. Smoking cessation education done. Time spent discussing smoking cessation with patient: 3 to 10 minutes - Time Spent with Patient Total time spent providing and/or coordinating discharge services: 40 minutes Greater than 30 minutes - Constitutional Vitals: Temp Pulse Resp BP Pulse Ox 97.6 F 58 16 135/73 93 L 05/01/16 07:09 05/01/16 07:09 05/01/16 07:09 05/01/16 07:09 05/01/16 07:09 General appearance: Present: A&O X 3, no acute distress, answers questions appropriately - Head Head exam: Present: atraumatic, normocephalic - Eye Eye exam: Present: PERRL, conjuntiva pink, sclera anicteric Pupils: Present: PERRL - Neck Neck exam general surgery: Present: supple, trachea midline. Absent: lymphadenopathy - Respiratory Respiratory exam: Present: CTAB. Absent: accessory muscle use, rales, rhonchi, wheezes - Cardiovascular Cardiovascular exam: Present: RRR, +S1, +S2. Absent: diastolic murmur, gallop, rubs, systolic murmur - GI/Abdominal GI/Abdominal exam: Present: normal bowel sounds, soft, no peritoneal signs. Absent: distended, tenderness - Extremities Exam Extremities exam: Present: warm, radial pulses palpable and symetrical. Absent : calf tenderness, cyanotic, pedal edema - Neurological Exam Neurological exam: Present: CN II-XII intact, oriented X3, no focal deficits. Absent: pronater drift, facial droop, speech deficit - Skin Skin exam: Present: dry, intact
[2016-05-01 11:27] VITALS: BP 138/55
== END 2016-05-01 12:57 | disposition home or self-care (01) ==
LOC: 3BNU 15:52 → EMEROO 15:52 → SUATTDRO 20:46 → 3BNU 21:35
PROVIDERS: ADMIT Nurse Practitioner Family; ATTEND Internal Medicine